=== PATIENT | female | born 1950 | race Hispanic/Latino ===

== ENCOUNTER 2020-06-24 10:09 | Emergency (ER) | payer MEDICARE ==
[~2020-06-24] VITALS: Ht 160 cm; Wt 72.6 kg
--- NOTE | 2020-06-24 14:10 | Emergency Department Note ---
History of Present Illnes History of Present Illness Chief Complaint: Eye, Ear, Nose, Throat, Dental History of Present Illness This is a 69 year old female Arrived to the ED with complaints of pain over her left eye from a bee sting, patient is concerned that the residual stinger may still be in her eye. Patient complains of mild blurry vision with admits to market lacrimation. Patient states she is able to move her eyes with minimal pain. Admits to photophobia. Chief Complaint Comment YESTERDAY AT 130PM, PATIENTS STATES SHE WAS STUNG BY A BEE IN LEFT EYE. DENIES ANY BLURRY VISION. SLIGHT SWELLING TO LID. "FEELS LIKE A SPLINTER IN MY EYE" C/O OF DEEP PAIN BEHIND EYEBALL. Historian: Patient Arrival Mode: Car Additional Treatment PHYSIOLOGY TEACHER: NONE Onset (how long ago): day(s) Radiation: Reports non-radiation Severity: mild Onset quality: sudden Duration (how long): day(s) Context: Reports trauma/injury Exacerbating factors: none Past Medical/Family History Physician Review I have reviewed the patient's past medical and family history. Any updates have been documented here. Past Medical History Recent Fever: No Clinical Suspicion of Infectio: No New/Unexplained Change in Ment: No Past Medical History: Kidney Stones, Anemia, Anxiety, Depression Other Medical History: TORN ROTATOR CUFF Past Surgical History: Back Surgery Review of Systems Review of Systems Constitutional: Reports no symptoms EENTM: Reports as per HPI, Reports eye pain, Reports tearing Cardiovascular: Reports no symptoms Respiratory: Reports no symptoms Gastrointestinal: Reports no symptoms Genitourinary: Reports no symptoms Musculoskeletal: Reports no symptoms Integumentary: Reports no symptoms Neurological: Reports no symptoms Psychological: Reports no symptoms Endocrine: Reports no symptoms Hematological/Lymphatic: Reports no symptoms Physical Exam Related Data Allergies: Coded Allergies: No Known Allergies (Unverified , 06/24/20) Triage Vital Signs Vital Signs Date Time Temp Pulse Resp B/P (MAP) Pulse Ox O2 Delivery O2 Flow Rate FiO2 06/24/20 10:36 98.4 85 18 133/64 100 Room Air Vital signs reviewed: Yes Physical Exam CONSTITUTIONAL Constitutional: Present well-developed, Present well-nourished HENT HENT: Present normocephalic, Present atraumatic, Present oropharynx clear/moist, Present nose normal HENT L/R: Present left ext ear normal, Present right ext ear normal EYES Eyes: Reports PERRL, Reports conjunctivae normal, Reports other (Discharge noted from left eye that is clear nonpurulent in nature, mild lid swelling noted, patient with full extraocular motion, no proptosis, preseptal cellulitis fluorescein uptake noted at 5 o'clock position) NECK Neck: Present ROM normal PULMONARY Pulmonary: Present effort normal, Present breath sounds normal CARDIOVASCULAR Cardiovascular: Present regular rhythm, Present heart sounds normal, Present capillary refill normal, Present normal rate GASTROINTESTINAL Abdominal: Present soft, Present nontender, Present bowel sounds normal GENITOURINARY Genitourinary: Present exam deferred SKIN Skin: Present warm, Present dry MUSCULOSKELETAL Musculoskeletal: Present ROM normal NEUROLOGICAL Neurological: Present alert, Present oriented x 3, Present no gross motor or sensory deficits PSYCHOLOGICAL Psychological: Present mood/affect normal, Present judgement normal Results Laboratory Lab results reviewed: Yes Imaging Imaging results reviewed: Yes Impressions IMPRESSION: 1. Mild left periorbital preseptal soft tissue swelling as well as minimal enhancement of the left globe sclera without fluid collections or postseptal involvement. 2. 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 Comparison to prior studies if available is recommended to determine stability. Assessment & Plan Medical Decision Making MDM 70-year-old female arrived to the ED with complaints of pain secondary to bee sting. CT maxillofacial done to ensure no signs of a orbital cellulitis or abscess. Patient had no pain with extraocular motions. 1 dose of antibiotics given in the emergency department with improvement noted. Patient noted to have mild corneal abrasion on exam which also may be attributed to patient's lacrimation. I encouraged follow-up with outpatient ophthalmology for further work-up and management. Patient stable for discharge home. Assessment & Plan Final Impression: (1) Corneal abrasion (2) Preseptal cellulitis Last Vital Signs Date Time Temp Pulse Resp B/P (MAP) Pulse Ox O2 Delivery O2 Flow Rate FiO2 06/24/20 10:36 98.4 85 18 133/64 100 Room Air Home Meds Active Scripts Tramadol Hcl (ULTRAM) 50 Mg Tablet, 50 MG PO Q6HR PRN for Mild Pain (1-3) or Fever>100.8, #14 TAB Prov:YOVANI OLSON, 06/24/20 Clindamycin Hcl (CLINDAMYCIN HCL) 300 Mg Capsule, 300 MG PO Q6H, #40 Prov:YOVANI OLSON DO 06/24/20 Erythromycin Base/Ethanol (ERYTHROMYCIN 2% GEL) 30 Gm Gel..gram., 1 INCH OP Q8HR, #1 Prov:YOVANI OLSON DO 06/24/20 YOVANI OLSON DO Jun 24, 2020 14:10
[2020-06-24 14:24] LABS: BASOPHILS % 0.5 % (0.0-1.0); EOSINOPHILS # (AUTO) 0.2 (0.0-0.4); EOSINOPHILS % 2.1 % (0.0-6.0); HEMATOCRIT 39.2 % (34.2-44.1); LYMPHOCYTES # (AUTO) 2.3 (1.0-3.2); LYMPHOCYTES % 27.1 % (18.0-39.1); MEAN CORPUSCULAR HEMOGLOBIN 24.5 pg (28-32); MEAN CORPUSCULAR HGB CONC 30.6 g/dL (31-35); MONOCYTES # (AUTO) 0.5 (0.2-0.8); MONOCYTES % 5.6 % (4.4-11.3); NEUTROPHILS # (AUTO) 5.4 (2.1-6.9); NEUTROPHILS % 64.3 % (38.7-80.0); PLATELET COUNT 380 x10e3/uL (140-360); RED CELL DISTRIBUTION WIDTH 20.8 % (11.7-14.4)
[2020-06-24 14:40] LABS: ALANINE AMINOTRANSFERASE 15 IU/L (0-55); ALBUMIN 4.5 g/dL (3.5-5.0); ALBUMIN/GLOBULIN RATIO 1.5 (0.8-2.0); ALKALINE PHOSPHATASE 108 IU/L (40-150); BLOOD UREA NITROGEN 9 mg/dL (7-26); BUN/CREATININE RATIO 13 (6-25); CARBON DIOXIDE 22 mmol/L (22-29); CHLORIDE 106 mmol/L (98-107); CREATININE, SERUM 0.69 mg/dL (0.57-1.11); EST GLOMERULAR FILTRATION RATE > 60 ML/MIN (60-); GLUCOSE 86 mg/dL (74-118); SODIUM 141 mmol/L (136-145)
[2020-06-24] MEDS ORDERED: TETRACAINE HCL 0.5% OPTH SOLN 4 ML BTL OP ONE (14:45)
[2020-06-24] MEDS ORDERED: SODIUM CHLORIDE 0.9% 50ML 50 ML ONE (15:43)
[2020-06-24] MEDS ORDERED: IOPAMIDOL 370 MG/ML 200 ML INFUS..BTL INJ ONE (15:43)
--- NOTE | 2020-06-24 16:01 | NUR ---
2 DROPS OF TETRACAINE INTO THE LEFT EYE
--- NOTE | 2020-06-24 16:02 | NUR ---
HOLDER LAMP IN ROOM
--- NOTE | 2020-06-24 16:24 | Diagnostic Imaging Report ---
EXAMINATION: CT of the face HISTORY: Left eye swelling since yesterday. Bee sting to the left eye. COMPARISON: None available TECHNIQUE: Multidetector helical axial images were acquired through the face with contrast. Intravenous contrast: 100 mL of Isovue-370. Dose modulation, iterative reconstruction, and/or weight based adjustment of the mA/kV was utilized to reduce the radiation dose to as low as reasonably achievable. FINDINGS: Bones: Unremarkable. Facial soft tissues: Left periorbital preseptal soft tissue swelling, otherwise no abnormalities. Paranasal sinuses and drainage pathways: Aplastic frontal sinuses. The ethmoidal, sphenoid and maxillary sinuses are clear. The ostiomeatal units, fronto-nasal and spheno-ethmoidal recesses are clear. Orbits contents: Mild left periorbital preseptal soft tissue swelling without fluid collections. Linear enhancement along the anterior globe sclera. Otherwise the globe and postseptal structures are preserved. Nasal septum: Midline. Anatomic variations: No significant anatomic variations. Dentition: No acute abnormality of the visualized teeth. Incidental findings: Approximately 5 mm based to dome anterior communicating artery aneurysm, which has a wide neck of approximately 3 mm, the aneurysm is oriented anteriorly and inferiorly. IMPRESSION: 1. Mild left periorbital preseptal soft tissue swelling as well as minimal enhancement of the left globe sclera without fluid collections or postseptal involvement. 2. 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 Comparison to prior studies if available is recommended to determine stability. Signed by: Dr. Magaly Kerns M.D. on 06/24/2020 4:21 PM
[2020-06-24] MEDS ORDERED: CLINDAMYCIN HC300 MG PO (17:12)
[2020-06-24] MEDS ORDERED: ERYTHROMYCIN 2%30 GM OP (17:12)
[2020-06-24] MEDS ORDERED: FLUORESCEIN SOD(OPTH) 1 MG STRP OP ONE (17:15)
[2020-06-24] MEDS ORDERED: FLUORESCEIN SOD(OPTH) 1 MG STRP ONE (17:19)
[2020-06-24] MEDS ORDERED: ULTRAM50 MG PO (17:19)
[2020-06-24] MEDS ORDERED: HYDROCODONE/APAP 7.5MG-325MG 1 EA TAB PO PRN (17:30)
== END 2020-06-24 17:55 | disposition home or self-care (01) ==
LOC: ER 10:29
DX: L03.213 Periorbital cellulitis (principal); S05.02XA Injury of conjunctiva and corneal abrasion without foreign body, left eye, initial encounter; T63.441A Toxic effect of venom of bees, accidental (unintentional), initial encounter
CPT/HCPCS: 36415; 70487; 80053; 85025; 99283; Q9967

== ENCOUNTER → 2023-04-13 | Outpatient (RCR) | payer MEDICARE, OTHER ==
[~2023-04-13] MED LIST: CLINDAMYCIN HC300 MG PO; ERYTHROMYCIN 2%30 GM OP; ULTRAM50 MG PO
== END ==
LOC: PT 15:38
PROVIDERS: ATTEND Specialist
DX: S46.011A Strain of muscle(s) and tendon(s) of the rotator cuff of right shoulder, initial encounter (principal)

== ENCOUNTER 2025-02-28 19:35 | Emergency (ER) | payer MEDICARE, OTHER ==
[~2025-02-28] VITALS: Ht 160 cm; Wt 72.6 kg
[2025-02-28 19:44] VITALS: PULSE 90; RESP 16; TEMP 98.7
[2025-02-28] MEDS: TETANUS/DIPHTHERIA TOX ADULT 0.5 ML SYR IM ONE (20:04)
[2025-02-28] MEDS: HYDROCODONE/APAP 7.5MG-325MG 1 EA TAB PO ONE (20:04)
[2025-02-28] MEDS ORDERED: CEFTRIAXONE 1 GM VIAL ONE (21:01)
[2025-02-28] MEDS ORDERED: LIDOCAINE HCL 1% 2 ML AMP ONE (21:01)
[2025-02-28] MEDS: BACITRACIN ZINC 0.9GM TP ONE (21:02)
[2025-02-28] MEDS ORDERED: HYDROCODON-ACE1 EA12 PO (21:08)
[2025-02-28] MEDS ORDERED: CEPHALEXIN500 MG PO (21:08)
[2025-02-28] MEDS: BUPIVACAINE HCL 0.25% 10ML MPF VIAL INJ ONE (21:08)
[2025-02-28] MEDS ORDERED: ONDANSETRON ODT4 MG SL (21:08)
[2025-02-28] MEDS: CEFTRIAXONE 1 GM VIAL IM ONE (21:13)
[2025-02-28] MEDS: LIDOCAINE HCL 1% LOCAL INJ 20 ML VIAL INJ ONE (21:14)
[2025-02-28 21:22] VITALS: BP 135/55; PULSE 85; RESP 16; TEMP 98.7; O2SAT 97
== END 2025-02-28 21:15 | disposition home or self-care (01) ==
LOC: ER 19:42
DX: S62.634B Displaced fracture of distal phalanx of right ring finger, initial encounter for open fracture (principal); W23.2XXA Caught, crushed, jammed or pinched between a moving and stationary object, initial encounter; Y92.89 Other specified places as the place of occurrence of the external cause; D64.9 Anemia, unspecified; F41.9 Anxiety disorder, unspecified; F32.A Depression, unspecified
CPT/HCPCS: 29130; 73140; 90471; 90714; 99284; J0696; J2003